=== PATIENT | female | born 1980 | race Caucasian/White ===

== ENCOUNTER 2020-08-14 13:30 | Emergency (ER) | payer OTHER, SELFPAY ==
--- NOTE | ~2020-08-14 | CT_ITS ---
EXAMINATION: CT abdomen pelvis w con EXAM DATE: 08/14/2020 15:24 INDICATION: Abdominal cramping, bloating, nausea . TECHNIQUE: Spiral CT of the abdomen and pelvis was performed following intravenous injection of 100 m L Omnipaque 350. Axial, coronal and sagittal images were reviewed. The dose-length product (DLP) fo r this examination was 414.45 mGy-cm. The exposure was tailored according to patient size (auto mA e xposure control), and iterative reconstruction (ASIR) was used as additional dose reduction technique . Comparison is made to prior examination from 08/21/2016. FINDINGS: The liver, spleen, adrenal glands and pancreas are unremarkable. Gallbladder is unremarkab le. No biliary obstruction. There are bilateral renal lesions consistent with cysts, largest on the right at 2.5 cm. Portal and splenic veins are patent. Kidneys enhance symmetrically. There is no hy dronephrosis. The uterus is anteverted and morphologically normal. The bladder is unremarkable. There is no retroperitoneal or pelvic lymphadenopathy. The appendix is normal. There is small sliding gastroesophageal hiatal hernia. There is moderate am ount of colonic stool. No free intraperitoneal gas. The heart is normal in size. There are no pe ricardial or pleural effusions. The lung bases are unremarkable. The bones are unremarkable. IMPRESSION: 1. No acute intra-abdominal findings. Reviewed, dictated and finalized at location A.
[2020-08-14 13:34] VITALS: BP 157/97; PULSE 76; RESP 18; TEMP 36.2; O2SAT 98
[2020-08-14 14:16] LABS: Basophils Percent Auto 0.2 % (0.2-1.2); Eosinophils Absolute Auto 0.1 K/mm3 (0-0.3); Eosinophils Percent Auto 1.4 % (0-4.4); Hematocrit 35.1 % (37.0-47.0); Hemoglobin 10.7 g/dL (12.0-15.0); Immature Granulocyte Absolute 0.02 K/mm3 (0.00-0.031); Immature Granulocyte Percent A 0.5 % (0-0.5); Lymphocytes Absolute Auto 1.33 K/mm3 (0.9-3.2); Lymphocytes Percent Auto 31.2 % (18.3-44.2); Mean Corpuscular HGB Conc 30.5 g/dl (32-36); Mean Corpuscular Hemoglobin 22.3 pg (26-34); Mean Corpuscular Volume 73.1 fl (80-100); Mean Platelet Volume 10.1 fl (7.4-10.4); Monocytes Absolute Auto 0.3 K/mm3 (0.1-0.6); Monocytes Percent Auto 7.7 % (2.6-8.5); Neutrophils Absolute Auto 2.5 K/mm3 (1.3-6.7); Platelet Count Result 203 k/mm3 (150-375); Red Cell Distribution Width 16.8 % (11.5-14.5); White Blood Count 4.3 K/mm3 (4.5-10.0)
[2020-08-14 14:28] LABS: Alanine Aminotransferase 25 U/L (4-35); Albumin Level 4.5 g/dL (3.5-5.1); Alkaline Phosphatase 63 U/L (38-126); Anion Gap 7 mmol/L (8-16); Aspartate Amino Transferase 32 U/L (14-36); Bilirubin,Total 0.2 mg/dL (0.2-1.3); Blood Urea Nitrogen 16 mg/dL (7-17); Calcium 9.3 mg/dL (8.4-10.2); Carbon Dioxide 26 mmol/L (22-30); Chloride 106 mmol/L (98-107); Estimated CRCL calculation 87 ml/min; Estimated Glomerular Filt Rate > 60; Glucose 116 mg/dL (65-105); Lipase 74 U/L (23-300); Potassium 3.7 mmol/L (3.4-5.0); Sodium 139 mmol/L (137-145)
[2020-08-14] MEDS: SODIUM CHLORIDE 0.9% IV 1,000 ML 999 ML IV CONT (14:36)
[2020-08-14 14:42] LABS: Add Urine Microscopic? YES; Appearance Urine Cloudy (Clear); Bilirubin Urine Negative (Negative); Blood Urine Negative (Negative); Color Urine Yellow (Yellow); Glucose Urine UA Negative (Negative); Ketones Urine Negative (Negative); Leukocyte Esterase Ur Negative LEU/UL (Negative); Mucus Urine Rare /lpf; Nitrate Urine Negative (Negative); Protein Urine Negative (Negative); RBC Urine 0-2 /hpf (0-2); Specific Grav Ur 1.019 (1.001-1.035); Squamous Epithelial Cell Urine Many /hpf (Few); Urobilinogen Urine Negative mg/dL (<2.0); WBC Urine 0-3 /hpf
[2020-08-14 14:45] VITALS: BP 128/88; PULSE 70; RESP 16; O2SAT 99
--- NOTE | 2020-08-14 15:41 | ED.ABDPAIN ---
HPI - Abdominal Pain General Chief Complaint: Abdominal Pain Stated Complaint: abd pain Time Seen by Provider: 08/14/20 13:42 Source: patient Mode of arrival: ambulatory Limitations: no limitations History of Present Illness HPI narrative: Patient is a 39-year-old female who presents complaining of abdominal pain. Patient reports intermittent abdominal pain for 1 year, and increasing over the past 6 months. Patient reports pain increased significantly over this past week. Patient reports initially starting with started on Metformin, did not improve when switched to Januvia. She no longer takes Januvia. She also reports nausea, intermittent vomiting and diarrhea. She reports increased nausea, pain and diarrhea after eating. She denies fever or other complaints. Related Data Home Medications Medication Instructions Recorded Confirmed lisinopril 06/11/19 sertraline [Zoloft] 100 mg PO DAILY 08/14/20 08/14/20 Allergies Allergy/AdvReac Type Severity Reaction Status Date / Time Penicillins Allergy Unknown Nausea Verified 08/14/20 13:48 Review of Systems Review of Systems: Narrative: CONSTITUTIONAL: Denies fever, chills, or sweats. EYES: Denies visual changes, redness, or discharge. ENT: Denies rhinorrhea, congestion, sore throat, or otalgia. CARDIOVASCULAR: Denies chest pain, palpitations, or edema. RESPIRATORY: Denies cough or dyspnea. GASTROINTESTINAL: Reports abdominal pain, nausea, vomiting, or diarrhea. GENITOURINARY: Denies dysuria or hematuria. SKIN: Denies rash or itching. MUSCULOSKELETAL: Denies back pain, joint pain, or myalgia. NEUROLOGIC: Denies headache, numbness, dizziness, or weakness. PSYCHIATRIC: Denies anxiety or depression. [facility] Past Medical History Medical History Anxiety Bulging disc Diabetes mellitus Surgical History Surgical History H/O removal of cyst H/O tubal ligation Family History Family History Grandparent Diabetes mellitus Social History Social History Smoking status: Former smoker Smoking end date: 05/29/15 Alcohol intake: never Gender identity (if verbalized by the patient): Female Comments At the time of signature, I have reviewed and agree with nursing past medical, surgical, social, and family history unless otherwise noted. Please see nursing chart for further information. There is no relevant family history pertinent to the presenting complaint. Exam Narrative: Exam Narrative: GENERAL: Well-appearing, well-nourished, and in no acute distress. HEAD: Normocephalic, atraumatic. EYES: EOMI. No redness or drainage. Conjunctiva are normal. ENT: Mucous membranes pink and moist. Nares clear. No rhinorrhea. TMs normal bilaterally. Throat normal. Uvula midline. NECK: AROM. Supple. No lymphadenopathy. CHEST: No respiratory distress. Clear to auscultation. HEART: Regular rate and rhythm. No murmur appreciated. Normal peripheral pulses. GI: Soft, nontender without rebound, or guarding. No distention. Bowel sounds normal in all quadrants. MUSCULOSKELETAL: No bony tenderness. EXTREMITIES: Normal range of motion. No edema. SKIN: Warm, dry, no rash. NEURO: No focal deficits. Alert and oriented x3. Gait steady. PSYCH: Normal affect. No signs of depression or anxiety. Course Vital Signs Vital signs: Vital Signs Temperature 36.2 C L 08/14/20 13:34 Pulse Rate 76 08/14/20 13:34 Respiratory Rate 18 08/14/20 13:34 Blood Pressure 157/97 H 08/14/20 13:34 Pulse Oximetry 98 08/14/20 13:34 Temperature 36.2 C L 08/14/20 13:34 Pulse Rate 76 08/14/20 13:34 Respiratory Rate 18 08/14/20 13:34 Blood Pressure 157/97 H 08/14/20 13:34 Pulse Oximetry 98 08/14/20 13:34 Reviewed-patient is informed that they may have pr
[2020-08-14 15:45] VITALS: BP 154/89; PULSE 68; RESP 16; O2SAT 100
[2020-08-14 16:30] VITALS: BP 145/90; PULSE 70; RESP 16; O2SAT 100
== END 2020-08-14 16:30 | disposition home or self-care (01) ==
PROVIDERS: Emergency Provider Nurse Practitioner; PCP Family Medicine
DX: R10.9 Unspecified abdominal pain (principal); E11.9 Type 2 diabetes mellitus without complications; F41.9 Anxiety disorder, unspecified; Z87.891 Personal history of nicotine dependence; R03.0 Elevated blood-pressure reading, without diagnosis of hypertension
CPT/HCPCS: 36415; 74177; 80053; 81001; 81025; 83690; 85025; 96360; 99284; J7030; Q9967

== ENCOUNTER → 2020-09-29 02:07 | Outpatient (CLI) | payer OTHER, SELFPAY ==
[2020-09-29 19:23] LABS: SARS-CoV-2 RNA PCR Negative
== END ==
PROVIDERS: PCP Family Medicine; Visit Provider Internal Medicine Gastroenterology
DX: Z01.812 Encounter for preprocedural laboratory examination (principal); Z20.822 Contact with and (suspected) exposure to COVID-19
CPT/HCPCS: C9803; U0003; U0005

== ENCOUNTER 2020-10-02 01:11 | Day surgery (SDC) | payer OTHER, SELFPAY ==
[2020-09-22 14:03] VITALS: BMI 28.3
[2020-10-02 08:43] VITALS: BP 133/74; PULSE 72; RESP 16; TEMP 36.4; O2SAT 99; BMI 27.1
[2020-10-02] MEDS: LACTATED RINGERS 1,000 ML 150 ML IV CONT (08:48)
[2020-10-02 09:00] LABS: Glucose Point of Care 98 (65-105)
--- NOTE | 2020-10-02 09:22 | PM.HPGS ---
History of Present Illness History of Present Illness Consent: Risks, benefits, and alternatives have been discussed and questions answered. Patient agrees to proceed with procedure. Chief complaint: anemia Narrative: Daria Soto is a 39 year old female referred for investigation of iron deficiency anemia. She also suffers from epigastric pain has a great deal of bloating. Often her stools are loose. She becomes nauseated but has had no vomiting. She treats some of her symptoms to diabetic medications and/or cholesterol medicines. Review of Systems Review of Systems: All systems reviewed & are unremarkable except as noted in HPI and below PMFSH Past Medical History Medical History Anxiety Bulging disc Diabetes mellitus Surgical History Surgical History H/O removal of cyst H/O tubal ligation Family History Family History Grandparent Diabetes mellitus Social History Social History Smoking packs per day: 0.5 Smoking cigarettes per day: 10.0 Years smoked: 15 Smoking pack-years: 7.50 Smoking status: Former smoker Tobacco type: cigarettes Smoking end date: 09/23/15 Alcohol intake: never Substance use: never Substance use type: does not use Living arrangements: with roommate(s) Gender identity (if verbalized by the patient): Female Sexual Orientation (if Verbalized by the Patient): Straight or Heterosexual Spiritual care concerns: No Meds Home Medications and Allergies Home Medications Medication Instructions Recorded Confirmed Type dicyclomine 20 mg PO TID PRN #20 cap 08/14/20 09/22/20 Rx sertraline [Zoloft] 100 mg PO HS 08/14/20 09/22/20 History lisinopril 20 mg PO HS 09/22/20 09/22/20 History Allergies Allergy/AdvReac Type Severity Reaction Status Date / Time Penicillins Allergy Unknown Nausea Verified 09/22/20 14:03 Vital Signs Vital Signs - 24 hr 10/02/20 08:43 Temperature 36.4 C L Pulse Rate 72 Respiratory Rate 16 Blood Pressure 133/74 Pulse Oximetry 99 Exam Const: General: alert Orientation/consciousness: patient oriented x3 Resp: Auscultation: clear to auscultation bilaterally Cardio: Rhythm: regular rhythm GI: GI Palp: Yes Soft to palpation and No Tenderness to palpation present (GI) Neuro: General: patient oriented x3 Assessment and Plan Assessment and plan (1) Iron deficiency anemia: Code(s): D50.9 - Iron deficiency anemia, unspecified Status: Acute Assessment and Plan: Colonoscopy with possible biopsy or polypectomy or cautery or injection of substances. (2) Epigastric pain: Code(s): R10.13 - Epigastric pain Status: Acute Assessment and Plan: EGD with possible biopsy or dilatation or cautery.
--- NOTE | 2020-10-02 09:26 | WPDANESEPPF ---
Anes - Initial Pre Proc Eval Procedure: Operation Date: 10/02/20 10:00 Proposed Procedures p Colonoscopy - Geovanny Ocampo MD Date/Time: 10/02/20 09:26 Surgeon: Geovanny Ocampo MD Pre Op Diagnosis: anemia Patient Data Age: 39 Gender: F Height: 5 ft 3 in Weight: 69.6 kg Last Vital Signs Temp 36.4 C L 10/02/20 08:43 Pulse 72 10/02/20 08:43 Resp 16 10/02/20 08:43 BP 133/74 10/02/20 08:43 Pulse Ox 99 10/02/20 08:43 Allergies Allergy/AdvReac Type Severity Reaction Status Date / Time Penicillins Allergy Unknown Nausea Verified 09/22/20 14:03 Home Medications Medication Instructions Recorded Confirmed Type dicyclomine 20 mg PO TID PRN #20 cap 08/14/20 09/22/20 Rx sertraline [Zoloft] 100 mg PO HS 08/14/20 09/22/20 History lisinopril 20 mg PO HS 09/22/20 09/22/20 History Laboratory Tests 10/02/20 08:56 POC Capillary Glucose 98 mg/dl mg/dl (65-105) Patient hx anesthesia problems: post op nausea/vomiting Family hx anesthesia problems: none PMFSH Past Medical History Medical History Anxiety Bulging disc Diabetes mellitus Surgical History Surgical History H/O removal of cyst H/O tubal ligation Family History Family History Grandparent Diabetes mellitus Social History Social History Smoking packs per day: 0.5 Smoking cigarettes per day: 10.0 Years smoked: 15 Smoking pack-years: 7.50 Smoking status: Former smoker Tobacco type: cigarettes Smoking end date: 09/23/15 Alcohol intake: never Substance use: never Substance use type: does not use Living arrangements: with roommate(s) Gender identity (if verbalized by the patient): Female Sexual Orientation (if Verbalized by the Patient): Straight or Heterosexual Spiritual care concerns: No Anes - Eval Final PreProcedure Day of Procedure 10/02/20 09:26 Patient weight: overweight Heart: regular rate and rhythm Lungs: clear to auscultation Airway: Mallampati scale class II Neurological: alert and oriented Last oral intake: >/= 8 hours ASA classification: III Emergent: no Anesthetic plan: proceed Anesthesia type and monitoring: general GIVS and standard monitoring Informed Consent: The patient's anesthetic plan and its attendant risks and benefits were discussed with the patient/family/POA. Questions were solicited and answers provided to the satisfaction of the patient/family/POA.
[2020-10-02 10:28] VITALS: BP 115/63; PULSE 69; RESP 16; O2SAT 99
[2020-10-02 10:38] VITALS: BP 120/62; PULSE 70; RESP 18; O2SAT 99
[2020-10-02 10:47] VITALS: BP 130/67; PULSE 60; RESP 19; O2SAT 100
== END 2020-10-02 11:00 | disposition home or self-care (01) ==
PROVIDERS: PCP Family Medicine; Visit Provider Internal Medicine Gastroenterology
PROC: 0DJD8ZZ Inspection of Lower Intestinal Tract, Via Natural or Artificial Opening Endoscopic (ICD-10-PCS; CPT 45378; principal; 2020-10-02 10:00)
DX: Z12.11 Encounter for screening for malignant neoplasm of colon (principal); K21.9 Gastro-esophageal reflux disease without esophagitis; K29.70 Gastritis, unspecified, without bleeding; K29.80 Duodenitis without bleeding; F41.9 Anxiety disorder, unspecified; E11.9 Type 2 diabetes mellitus without complications; Z87.891 Personal history of nicotine dependence
CPT/HCPCS: 45378; 43239; 82948; 87081; 88305; J2704; J7120

== ENCOUNTER 2021-01-11 14:55 | Emergency (ER) | payer OTHER, SELFPAY ==
[2021-01-11 15:04] VITALS: BP 141/87; PULSE 69; RESP 16; TEMP 36.4; O2SAT 100
--- NOTE | 2021-01-11 15:31 | ED.DENTAL ---
HPI - Dental/Oral General Chief complaint: Dental/Oral Stated complaint: Tooth Pain Time Seen by Provider: 01/11/21 15:31 Source: patient and RN notes reviewed Mode of arrival: ambulatory Limitations: no limitations History of Present Illness HPI Narrative: 40-year-old female presents with concern for left upper dental pain. Reports 1 year ago she broke a tooth, did not have pain at that time so she did not have it taken care of. Reports in the last several days she began having pain on the upper left side and now the lower left side. Reports she used [id number] temporary filling with some relief. Reports she has an appointment with a dentist on . She denies fever, body aches, foul taste in her mouth. MD Complaint: tooth pain Related Data Home Medications Medication Instructions Recorded Confirmed sertraline [Zoloft] 100 mg PO HS 08/14/20 01/11/21 lisinopril 20 mg PO HS 09/22/20 01/11/21 pioglitazone 30 mg PO DAILY 01/11/21 01/11/21 Allergies Allergy/AdvReac Type Severity Reaction Status Date / Time Penicillins Allergy Unknown Nausea Verified 01/11/21 15:14 Review of Systems Review of Systems: CONSTITUTIONAL: Denies malaise, chills, sweats, or fever. ENT: Reports left upper and left lower dental pain, broken left upper tooth CARDIOVASCULAR: Denies chest pain, palpitations, or edema. SKIN: Denies rash or itching. MUSCULOSKELETAL: Denies myalgia. NEUROLOGIC: Denies headache. All systems reviewed & are unremarkable except as noted in HPI and below PMFSH Past Medical History Medical History Anxiety Bulging disc Diabetes mellitus Surgical History Surgical History H/O removal of cyst H/O tubal ligation Family History Family History Grandparent Diabetes mellitus Social History Social History Smoking packs per day: 0.5 Smoking cigarettes per day: 10.0 Years smoked: 15 Smoking pack-years: 7.50 Smoking status: Former smoker Tobacco type: cigarettes Smoking end date: 09/23/15 Alcohol intake: never Substance use: never Substance use type: does not use Gender identity (if verbalized by the patient): Female Spiritual care concerns: No Comments At time of signature, agree with nursing past medical, surgical, social and family history. There is no relevant family history pertinent to the presenting complaint Exam Narrative: GENERAL: Well-appearing, well-nourished, and in no acute distress. HEAD: Normocephalic, atraumatic. EYES: PERRLA, conjunctivae clear ENT: Nares clear. Mucous membranes moist. Oropharynx without edema, erythema or lesions. Tooth #14 broken, temporary filling noted, no periapical abscess noted NECK: Supple. CHEST: No respiratory distress. Speaks in full sentences. HEART: Regular rate and rhythm. SKIN: Warm, dry, no rash. NEURO: Alert and oriented x3. PSYCH: Normal mood and affect Course Course Emergency Course: Patient is aware of diagnosis, understands and agrees to treatment plan. Anticipatory guidance given. Patient agrees to follow-up as directed and is aware of reasons to seek care at the emergency department. Portions of this record may have been created with voice recognition software Vital Signs Vital signs: Vital Signs Temperature 97.5 F L 01/11/21 15:04 Pulse Rate 69 01/11/21 15:04 Respiratory Rate 16 01/11/21 15:04 Blood Pressure 141/87 H 01/11/21 15:04 Pulse Oximetry 100 01/11/21 15:04 Temperature 97.5 F L 01/11/21 15:04 Pulse Rate 69 01/11/21 15:04 Respiratory Rate 16 01/11/21 15:04 Blood Pressure 141/87 H 01/11/21 15:04 Pulse Oximetry 100 01/11/21 15:04 Reviewed. Patient has history of hypertension MDM - Dental/Oral MDM Narrative Medical decision making narrative: Patients pa
== END 2021-01-11 15:58 | disposition home or self-care (01) ==
PROVIDERS: Emergency Provider Nurse Practitioner; PCP Family Medicine
DX: K08.89 Other specified disorders of teeth and supporting structures (principal); Z87.891 Personal history of nicotine dependence; F41.9 Anxiety disorder, unspecified; E11.9 Type 2 diabetes mellitus without complications
CPT/HCPCS: 99213; G0463

== ENCOUNTER 2021-01-15 13:15 | Emergency (ER) | payer OTHER, SELFPAY ==
[2021-01-15 13:28] VITALS: BP 124/57; PULSE 71; RESP 16; TEMP 36.6; O2SAT 100
--- NOTE | 2021-01-15 13:44 | ED.DENTAL ---
HPI - Dental/Oral General Chief complaint: Dental/Oral Stated complaint: SWOLLEN LIPS Time Seen by Provider: 01/15/21 13:45 Source: patient and RN notes reviewed Mode of arrival: ambulatory Limitations: no limitations History of Present Illness HPI Narrative: 40-year-old female presents to the [facility] with complaints of lower lip swelling for 2 days. Was recently started on clindamycin. Was seen on January 11 and diagnosed with dental infection. Patient states that she started her clindamycin 2 days later her lip swelled up. Small blister noted to the front portion as well as it being very dry. Related Data Home Medications Medication Instructions Recorded Confirmed sertraline [Zoloft] 100 mg PO HS 08/14/20 01/15/21 lisinopril 20 mg PO HS 09/22/20 01/15/21 pioglitazone 30 mg PO DAILY 01/11/21 01/15/21 Allergies Allergy/AdvReac Type Severity Reaction Status Date / Time Penicillins Allergy Unknown Nausea Verified 01/15/21 13:30 Review of Systems Review of Systems: All systems reviewed & are unremarkable except as noted in HPI and below Constitutional: Constitutional: Reports no additional constitutional complaints, Denies chills and Denies fever(s) Eyes: Eyes: Reports no additional eye complaints ENT: Reports as per HPI Comments: lower lip swelling Cardiovascular: Cardiovascular: Reports no additional cardiovascular complaints Respiratory: Respiratory: Reports no additional respiratory complaints Musculoskeletal: Musculoskeletal: Reports no additional musculoskeletal complaints, Denies back pain and Denies myalgias Integumentary/Breasts: Skin/Breast: Reports system reviewed and no additional complaints, except as docu Neurologic: Reports system reviewed and no additional complaints, except as documented Psychiatric: Psychiatric: Reports no additional psychiatric complaints Allergic/Immunologic: Allergic/Immunologic: Reports no additional allergic/immunologic complaints [facility] Past Medical History Medical History Anxiety Bulging disc Diabetes mellitus Surgical History Surgical History H/O removal of cyst H/O tubal ligation Family History Family History Grandparent Diabetes mellitus Social History Social History Smoking packs per day: 0.5 Smoking cigarettes per day: 10.0 Years smoked: 15 Smoking pack-years: 7.50 Smoking status: Former smoker Tobacco type: cigarettes Smoking end date: 09/23/15 Alcohol intake: never Substance use: never Substance use type: does not use Gender identity (if verbalized by the patient): Female Spiritual care concerns: No Comments At the time of my signature, I reviewed and agree with the nursing past medical, surgical, social, and family history. There is no relevant family history pertinent to the patient complaint. Exam Const: General: healthy appearing, no acute distress and alert Nutritional Appearance: well nourished Orientation/consciousness: patient oriented x3 Limitations: no limitations HENMT: Head: normal to inspection Ears: hearing grossly normal bilaterally Face and sinus: other (Lower lip swelling with dryness and a scabbed area) Mouth: Yes Normal oral and palatal mucosa present and Yes tongue normal Throat: posterior oropharynx normal, uvula midline and posterior oropharynx abnormal Eyes: Conjunctivae: conjunctivae normal Pupils: Equal, round and reactive pupils present Neck: Neck: normal visual inspection Chest: Chest palpation & inspection: normal inspection of the chest Resp: Effort & Inspection: normal respiratory effort Auscultation: clear to auscultation bilaterally Cardio: Rate: regular rate Rhythm: regular rhythm : General: Yes no CVA tenderness Skin: General skin exam: normal color
== END 2021-01-15 14:01 | disposition home or self-care (01) ==
PROVIDERS: Emergency Provider Nurse Practitioner; PCP Family Medicine
DX: R22.0 Localized swelling, mass and lump, head (principal); Z87.891 Personal history of nicotine dependence; F41.9 Anxiety disorder, unspecified; E11.9 Type 2 diabetes mellitus without complications
CPT/HCPCS: 99213; G0463

== ENCOUNTER 2021-09-14 15:02 | Emergency (ER) | payer OTHER, SELFPAY ==
[2021-09-14 15:10] VITALS: BP 146/92; PULSE 105; RESP 14; TEMP 36.9; O2SAT 100
[2021-09-14 15:47] VITALS: BP 160/105; PULSE 113; RESP 18; O2SAT 98
--- NOTE | 2021-09-14 16:05 | PC.NURSE ---
Angie Avery with rectal exam.
--- NOTE | 2021-09-14 16:08 | ECG_ITS ---
Measurements Intervals [place] Rate: 89 P: 59 OK: 172 QRS: -2 QRSD: 92 T: 31 QT: 356 QTc: 435 Interpretive Statements SINUS RHYTHM NORMAL ECG NO PREVIOUS ECG AVAILABLE FOR COMPARISON Electronically Signed On 09-15-2021 11:41:11 CDT by Lencho Saunders M.D.
[2021-09-14] MEDS: MORPHINE SULFATE (*CRX) 4 MG/ML INJ IV PUSH (16:35)
[2021-09-14 16:40] LABS: Basophils Percent Auto 0.4 % (0.2-1.2); Eosinophils Absolute Auto 0.1 K/mm3 (0-0.3); Eosinophils Percent Auto 2.2 % (0-4.4); Hematocrit 38.1 % (37.0-47.0); Hemoglobin 11.6 g/dL (12.0-15.0); Immature Granulocyte Absolute 0.01 K/mm3 (0.00-0.031); Immature Granulocyte Percent A 0.2 % (0-0.5); Lymphocytes Absolute Auto 1.24 K/mm3 (0.9-3.2); Lymphocytes Percent Auto 25.1 % (18.3-44.2); Mean Corpuscular HGB Conc 30.4 g/dl (32-36); Mean Corpuscular Hemoglobin 25.3 pg (26-34); Mean Corpuscular Volume 83.2 fl (80-100); Mean Platelet Volume 9.9 fl (7.4-10.4); Monocytes Absolute Auto 0.4 K/mm3 (0.1-0.6); Monocytes Percent Auto 8.5 % (2.6-8.5); Neutrophils Absolute Auto 3.1 K/mm3 (1.3-6.7); Neutrophils Percent Auto 63.6 % (45.5-73.1); Platelet Count Result 245 k/mm3 (150-375); Red Blood Count 4.58 M/mm3 (4.2-5.4); Red Cell Distribution Width 16.7 % (11.5-14.5); White Blood Count 4.9 K/mm3 (4.5-10.0)
[2021-09-14 16:50] LABS: Alanine Aminotransferase 18 U/L (4-35); Albumin Level 4.6 g/dL (3.5-5.1); Alkaline Phosphatase 60 U/L (38-126); Anion Gap 8 mmol/L (8-16); Aspartate Amino Transferase 34 U/L (14-36); Bilirubin,Total 0.2 mg/dL (0.2-1.3); Blood Urea Nitrogen 16 mg/dL (7-17); Calcium 8.6 mg/dL (8.4-10.2); Carbon Dioxide 23 mmol/L (22-30); Chloride 106 mmol/L (98-107); Estimated CRCL calculation 107 ml/min; Estimated Glomerular Filt Rate > 60; Glucose 86 mg/dL (65-110); Potassium 3.9 mmol/L (3.4-5.0); Sodium 137 mmol/L (137-145)
--- NOTE | 2021-09-14 17:04 | ED.GENADULT ---
HPI - General Adult General Chief complaint: Unspecified Stated complaint: rectal pain Time Seen by Provider: 09/14/21 15:46 Source: patient History of Present Illness HPI narrative: Patient presents with rectal pain. Patient reports longstanding history of hemorrhoids she had that she had a complicated emergence colorectal surgery for her prior hemorrhoids but she was in the hospital for approximately 6 weeks. This was done 15 years ago in [place] she has been doing well since however the past 6 months she has had increased pain around her rectum she is attempted multiple [id number] medications without relief of her symptoms she saw her primary care doctor today and was referred to the ER for further evaluation. Denies any nausea or vomiting or abdominal pain her pain is all in her rectum described as a burning sensation worse with sitting moving attempts have bowel movements, no radiation. She does report streaks of blood in her stool Related Data Home Medications Medication Instructions Recorded Confirmed sertraline [Zoloft] 100 mg PO HS 08/14/20 09/14/21 lisinopril 20 mg PO HS 09/22/20 09/14/21 pioglitazone 30 mg PO DAILY 01/11/21 09/14/21 Allergies Allergy/AdvReac Type Severity Reaction Status Date / Time Penicillins Allergy Unknown Nausea Verified 01/15/21 13:30 Review of Systems Review of Systems: CONSTITUTIONAL: Denies fever, chills, or sweats. EYES: Denies visual changes, redness, or discharge. ENT: Denies rhinorrhea, congestion, sore throat, or otalgia. CARDIOVASCULAR: Denies chest pain, palpitations, or edema. RESPIRATORY: Denies cough or dyspnea. GASTROINTESTINAL: Denies abdominal pain, nausea, vomiting, or diarrhea. GENITOURINARY: Denies dysuria or hematuria. SKIN: Denies rash or itching. MUSCULOSKELETAL: Denies back pain, joint pain, or myalgia. NEUROLOGIC: Denies headache, numbness, dizziness, or weakness. PSYCHIATRIC: Denies anxiety or depression. All systems reviewed & are unremarkable except as noted in HPI and below PMFSH Past Medical History Medical History Anxiety Bulging disc Diabetes mellitus Surgical History Surgical History H/O removal of cyst H/O tubal ligation Family History Family History Grandparent Diabetes mellitus Social History Social History Smoking packs per day: 0.5 Smoking cigarettes per day: 10.0 Years smoked: 15 Smoking pack-years: 7.50 Smoking status: Former smoker Tobacco type: cigarettes Smoking end date: 09/23/15 Alcohol intake: never Substance use: never Substance use type: does not use Gender identity (if verbalized by the patient): Female Sexual Orientation (if Verbalized by the Patient): Straight or Heterosexual Spiritual care concerns: No Exam Narrative: GENERAL: Well-appearing, well-nourished, and in no acute distress. HEAD: Normocephalic, atraumatic. EYES: PERRLA and EOMI. ENT: Nares clear, no rhinorrhea or epistaxis. Mucous membranes moist. NECK: Supple. No masses. No JVD ABDOMEN: Soft, nontender, nondistended, normal active bowel sounds. Rectal: Nurse Minerva was frame stripper for the exam patient has diffuse hemorrhoids exquisitely tender hemorrhoids on the entirety of the rectum multiple overlying skin tags no active bleeding EXTREMITIES: Normal range of motion. No edema. SKIN: Warm, dry, no rash. NEURO: No focal deficits. Alert and oriented x3. PSYCH: Normal mood and affect. Course Reevaluation(s) Reevaluation #1: Patient reports feeling much improved after supportive therapies. Case discussed with Dr. Christian who will assist with outpatient evaluation. Patient is comfortable outpatient plan. Diet education given importance of sitz bath and stool softener stressed. Date: 09/14/21 Time: 17:36 Madelyn
[2021-09-14 17:59] VITALS: BP 142/88; PULSE 78; RESP 18; O2SAT 98
[2021-09-14] MEDS: HYDROCORTISONE/PRAMOX 1% FOAM 10 GM CAN 1 APPLIC RECTAL (18:00)
== END 2021-09-14 18:01 | disposition home or self-care (01) ==
PROVIDERS: Emergency Provider Emergency Medicine; PCP Physician Assistant
DX: K64.9 Unspecified hemorrhoids (principal); E11.9 Type 2 diabetes mellitus without complications; F41.9 Anxiety disorder, unspecified; Z87.891 Personal history of nicotine dependence
CPT/HCPCS: 36415; 80053; 85025; 93005; 96374; 99284; A9270; J2270

== ENCOUNTER 2021-09-19 17:50 | Emergency (ER) | payer OTHER, SELFPAY ==
[2021-09-19] VITALS (11 sets, daily range): BP systolic 121–158; BP diastolic 77–117; PULSE 91–128; RESP 8–20; TEMP 36.6; O2SAT 95–100
--- NOTE | ~2021-09-19 | CT_ITS ---
EXAMINATION: CT abdomen pelvis w con INDICATION: Rectal pain, hematochezia TECHNIQUE: Computed tomographic images of the abdomen and pelvis were obtained after the administrati on of 100 cc of Omnipaque 350 intravenous contrast. The dose-length product (DLP) was 734.50 mGy-cm. Automated exposure control and iterative reconstruction technique were employed. COMPARISON: 08/14/2020 FINDINGS: Minimal dependent atelectasis is present in the lung bases. The heart size is normal. There is a small sliding hiatal hernia. The liver, spleen, pancreas, gallbladder, and adrenal glands are n ormal. Cysts of the kidneys measure up to 3 cm on the right. 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 No pathologically enlarged abdominal or pelvic lymph nodes are identified. A moderate volu me of colonic stool is present. There is no free intraperitoneal gas or evidence of bowel obstruction . There is a fat-containing umbilical hernia. IMPRESSION: 1. No CT correlate for the patient's symptoms. Reviewed, dictated and finalized at location F.
[2021-09-19] MEDS: SODIUM CHLORIDE 0.9% IV 1,000 ML 999 ML IV CONT (20:04)
[2021-09-19] MEDS: fentaNYL CITRATE INJ (*CRX) 100 MCG/2 ML VIAL 50 MCG IV PUSH (20:06)
[2021-09-19 20:24] LABS: Basophils Percent Auto 0.3 % (0.2-1.2); Eosinophils Absolute Auto 0.1 K/mm3 (0-0.3); Eosinophils Percent Auto 1.3 % (0-4.4); Hematocrit 37.7 % (37.0-47.0); Hemoglobin 11.8 g/dL (12.0-15.0); Immature Granulocyte Absolute 0.02 K/mm3 (0.00-0.031); Immature Granulocyte Percent A 0.3 % (0-0.5); Lymphocytes Absolute Auto 1.25 K/mm3 (0.9-3.2); Lymphocytes Percent Auto 19.8 % (18.3-44.2); Mean Corpuscular HGB Conc 31.3 g/dl (32-36); Mean Corpuscular Hemoglobin 25.7 pg (26-34); Mean Corpuscular Volume 82.1 fl (80-100); Mean Platelet Volume 10.1 fl (7.4-10.4); Monocytes Absolute Auto 0.5 K/mm3 (0.1-0.6); Monocytes Percent Auto 7.6 % (2.6-8.5); Neutrophils Absolute Auto 4.5 K/mm3 (1.3-6.7); Neutrophils Percent Auto 70.7 % (45.5-73.1); Platelet Count Result 244 k/mm3 (150-375); Red Blood Count 4.59 M/mm3 (4.2-5.4); Red Cell Distribution Width 16.5 % (11.5-14.5); White Blood Count 6.3 K/mm3 (4.5-10.0)
[2021-09-19 20:33] LABS: Alanine Aminotransferase 17 U/L (4-35); Albumin Level 4.6 g/dL (3.5-5.1); Alkaline Phosphatase 61 U/L (38-126); Anion Gap 10 mmol/L (8-16); Aspartate Amino Transferase 29 U/L (14-36); Bilirubin,Total 0.2 mg/dL (0.2-1.3); Blood Urea Nitrogen 19 mg/dL (7-17); Calcium 8.9 mg/dL (8.4-10.2); Carbon Dioxide 19 mmol/L (22-30); Chloride 107 mmol/L (98-107); Estimated CRCL calculation 104 ml/min; Estimated Glomerular Filt Rate > 60; Glucose 106 mg/dL (65-110); Potassium 3.9 mmol/L (3.4-5.0); Sodium 136 mmol/L (137-145)
--- NOTE | 2021-09-19 20:34 | ED.GENADULT ---
HPI - General Adult General Chief complaint: Unspecified Stated complaint: hemorrhoids with inability to sit Time Seen by Provider: 09/19/21 19:00 History of Present Illness HPI narrative: Patient is a 40-year-old female who presents ER with pain around her rectum. She reports that she began having pain earlier in the week. She has been seen in the ER and she has also been evaluated by general surgery. She is supposed to get an exam under anesthesia of her rectum regarding possible rectal mass, anal polyps, and hemorrhoids. She reports pain increased today and she was told with pain increase she should go to the ER. Pain is near the perineum. She cannot sit. No fevers chills or sweats. She has been using Tucks and topical creams for her bottom without improvement. Related Data Home Medications Medication Instructions Recorded Confirmed sertraline [Zoloft] 100 mg PO HS 08/14/20 09/14/21 lisinopril 20 mg PO HS 09/22/20 09/14/21 pioglitazone 30 mg PO DAILY 01/11/21 09/14/21 cyclobenzaprine 10 mg tablet 10 mg PO TID 09/15/21 Allergies Allergy/AdvReac Type Severity Reaction Status Date / Time Penicillins Allergy Unknown Nausea Verified 09/16/21 14:08 Review of Systems Review of Systems: All systems reviewed & are unremarkable except as noted in HPI and below Constitutional: Constitutional: Denies chills and Denies fever(s) Cardiovascular: Cardiovascular: Denies chest pain, Denies rapid heart rate and Denies radiating jaw, neck or arm pain Respiratory: Respiratory: Denies cough and Denies dyspnea Gastrointestinal: Gastrointestinal: Denies abdominal pain, Reports hematochezia, Denies constipation, Denies diarrhea, Denies nausea and Denies vomiting Comments: Rectal pain Genitourinary: Genitourinary: Denies nocturia, Denies dysuria and Denies flank pain PMF Past Medical History Medical History (Updated 09/19/21 @ 22:36 by Anthony Rodriguez MD) Anxiety Bulging disc Diabetes mellitus History of blood transfusion Hypertension Surgical History Surgical History H/O laparoscopy H/O removal of cyst ovarian cyst H/O tubal ligation History of rectal surgery Family History Family History Grandparent Diabetes mellitus Mother Diabetes mellitus Hypertension Social History Social History Smoking packs per day: 0.5 Smoking cigarettes per day: 10.0 Years smoked: 15 Smoking pack-years: 7.50 Smoking status: Former smoker Tobacco type: cigarettes Smoking end date: 09/23/15 Alcohol intake: never Substance use: never Substance use type: does not use Additional occupation/education comments: [employer] Gender identity (if verbalized by the patient): Female Sexual Orientation (if Verbalized by the Patient): Straight or Heterosexual Spiritual care concerns: No Exam Narrative: GENERAL: Uncomfortable-appearing, well-nourished, and in no acute distress. HEAD: Normocephalic, atraumatic. ENT: Mucous membranes moist. CHEST: Clear to auscultation. No respiratory distress. HEART: Tachycardic and regular. Normal peripheral pulses. ABDOMEN: Soft, nontender, nondistended. Rectum does not reveal any thrombosed hemorrhoids or anal fissures. No left lateral decubitus position at the 3 o'clock position at the perineum patient has some fullness and pain. No cellulitis or discernible abscess. EXTREMITIES: Normal range of motion. No edema. SKIN: Warm, dry, no rash. NEURO: Alert and oriented x3. PSYCH: Normal mood and affect. Course Course Emergency Course: Pain improved with morphine. Informed of results. No evidence of abscess or thrombosed hernia. Discharge home. Recommend getting a doughnut pillow to help with discomfort. Follow-up with general surgery. Vital Signs Vital signs: Vital Signs Temperature
== END 2021-09-19 23:00 | disposition home or self-care (01) ==
PROVIDERS: Emergency Provider Emergency Medicine; PCP Physician Assistant
DX: K62.89 Other specified diseases of anus and rectum (principal); E11.9 Type 2 diabetes mellitus without complications; F41.9 Anxiety disorder, unspecified; I10 Essential (primary) hypertension; Z87.891 Personal history of nicotine dependence
CPT/HCPCS: 36415; 74177; 80053; 85025; 96361; 96374; 99284; J3010; J7030; Q9967

== ENCOUNTER → 2021-09-21 01:54 | Outpatient (CLI) | payer OTHER, SELFPAY ==
[2021-09-21 12:54] LABS: SARS-CoV-2 RNA PCR Negative
== END ==
PROVIDERS: PCP Physician Assistant; Visit Provider Surgery
DX: Z01.812 Encounter for preprocedural laboratory examination (principal); Z20.822 Contact with and (suspected) exposure to COVID-19
CPT/HCPCS: C9803; U0003; U0005

== ENCOUNTER 2021-09-24 01:27 | Day surgery (SDC) | payer OTHER, SELFPAY ==
--- NOTE | 2021-09-22 09:59 | SUR.PREOP ---
Report to the Outpatient Waiting Room, entrance under the green pavilion located off [facility], at time 1100 on date 09/24/21. OR Time: 1300. - You and your visitor will be asked a series of questions to screen for COVID 19 for your protection. - A mask is required within the hospital. Preoperative COVID Testing Requirements: No COVID Test needed if: (proof is required; if not received patient will have Rapid Test prior to entry) - Patient has received COVID Vaccine at least 14 days prior to procedure date or - Patient has positive COVID test result within last 90 days of surgery date. COVID Test needed if above criteria is not met If not COVID vaccinated a COVID test must be conducted within 72 hours of surgery and patient is asked to isolate self from time of testing until procedure. You will go to the [facility] for your COVID testing. The [facility] is located at the corner of [address] [facility]. You will only be called if COVID results are positive and your surgeon may reschedule your elective surgery date. Patients may have clear liquids (water, carbonated beverages, clear teas, apple juice) until 3 hours prior to surgery with a maximum of 20 ounces. - CLEAR LIQUIDS DAY PRIOR TO SURGERY - NO CLEAR LIQUIDS AFTER 1000 - No food from midnight until time of surgery - Infants may have breast milk until 4 hours before surgery, infant formula 6 hours prior to surgery. - Children will be allowed to drink immediately following surgery. If applicable, please bring a bottle or sippy cup to assist with drinking. Juice, water, soda, and popsicles are readily available. For infants on formula, please bring formula the day of surgery. Pacifiers are allowed. Please no make-up, nail montenegrin, hairspray, perfume, deodorant, or body powder the day of surgery. No jewelry (including any body piercings) or valuables the day of surgery, leave them at home. Please take a shower or bath the night before, or the morning of, surgery with an antibacterial soap. Wear comfortable, loose fitting clothing. Children are encouraged to wear pajamas. - Jewelry must be removed prior to entering the operating room. Rings and piercings that are not removed may be cut off. - The hospital will not accept responsibility for valuables. - Please leave all valuables, including medications, at home the day of surgery. If you are going home after surgery, a licensed airport driver must drive you home. - NO public transportation without another adult. - We recommend that an adult stay with you for 24 hours following discharge. - We also recommend that you do not drive, make important decision, drink alcoholic beverages, or take any drugs that were not prescribed by your health care provider for at least 24 hours after your discharge time. For Pediatric surgeries, we recommend two adults accompany the child home (only one inside the building at this time). One visitor will be allowed to accompany the patient into the hospital. Patients visitor will be instructed to remain with patient at all times or leave the building. We will allow the visitor to come back to the postoperative area when patient is ready. Follow any additional instructions given to you from your surgeon. FLEETS ENEMA AT BEDTIME AND MORNING OF SURGERY BEFORE COMING TO THE HOSPITAL DULCOLAX TABLET DIRECTED PER DR CAREY Telephone instructions given to SYEDA APPLE and asked if any additional questions and then verbalized understanding. Patient advised to call surgeon office or pre surgery nurse liaison [phone] if any additional questions.
[2021-09-24] VITALS (10 sets, daily range): BP systolic 125–151; BP diastolic 73–97; PULSE 84–115; RESP 12–16; TEMP 36.2–36.6; O2SAT 98–100
[2021-09-24] MEDS: ACETAMINOPHEN 500 MG TABLET 1000 MG PO (11:51)
[2021-09-24] MEDS: LACTATED RINGERS 1,000 ML 30 ML IV CONT (12:00)
[2021-09-24] MEDS: KETOROLAC 15 MG/ML VIAL (*BKC) IV PUSH (12:04)
[2021-09-24 12:08] LABS: Glucose Point of Care 108 mg/dl (65-105)
--- NOTE | 2021-09-24 12:31 | WPDANESEPPF ---
Anes - Initial Pre Proc Eval Procedure: Operation Date: 09/24/21 13:00 Proposed Procedures p Rectal Exam Under Anesthesia, Rigid Sigmoidoscopy, Possible Biopsy, Possible Excision Rectal Mass or Internal Hemorrhoid - Pranav Christian MD Date/Time: 09/24/21 12:31 Surgeon: Pranav Christian MD Pre Op Diagnosis: Rectal Mass Patient Data Age: 40 Gender: F Height: 1.63 m Weight: 82.6 kg Last Vital Signs Temp 36.6 C 09/24/21 11:36 Pulse 111 H 09/24/21 11:36 Resp 16 09/24/21 11:36 BP 144/97 H 09/24/21 11:36 Pulse Ox 100 09/24/21 11:36 Allergies Allergy/AdvReac Type Severity Reaction Status Date / Time Penicillins Allergy Intermediate Rash Verified 09/24/21 11:46 Home Medications Medication Instructions Recorded Confirmed Type sertraline [Zoloft] 100 mg PO HS 08/14/20 09/24/21 History lisinopril 20 mg PO HS 09/22/20 09/24/21 History pioglitazone 30 mg PO HS 01/11/21 09/24/21 History cyclobenzaprine 10 mg tablet 10 mg PO HS 09/15/21 09/24/21 History ferrous sulfate [Gentle Iron (iron 325 mg PO DAILY 09/22/21 09/24/21 History sulfate)] Laboratory Tests 09/24/21 12:03 POC Capillary Glucose 108 mg/dl H mg/dl (65-105) Patient hx anesthesia problems: none Family hx anesthesia problems: post op nausea/vomiting Results Review: All pre-operative results and documents have been reviewed as part of the pre-operative evaluation. [facility] Past Medical History Medical History Anxiety Bulging disc Diabetes mellitus History of blood transfusion Hypertension Surgical History Surgical History H/O laparoscopy H/O removal of cyst ovarian cyst H/O tubal ligation History of rectal surgery Family History Family History Grandparent Diabetes mellitus Mother Diabetes mellitus Hypertension Social History Social History Smoking packs per day: 0.5 Smoking cigarettes per day: 10.0 Years smoked: 15 Smoking pack-years: 7.50 Smoking status: Former smoker Tobacco type: cigarettes Smoking end date: 09/23/15 Alcohol intake: never Substance use: never Substance use type: does not use Living arrangements: with family 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[employer] Gender identity (if verbalized by the patient): Female Sexual Orientation (if Verbalized by the Patient): Straight or Heterosexual Spiritual care concerns: No Anes - Eval Final PreProcedure Day of Procedure 09/24/21 12:31 Patient weight: obese Heart: regular rate and rhythm Lungs: decreased breath sounds Airway: Mallampati scale class II Neurological: alert and oriented Last oral intake: >/= 8 hours ASA classification: III Emergent: no Anesthetic plan: proceed Anesthesia type and monitoring: general LMA and standard monitoring Results Review: All pre-operative results and documents have been reviewed as part of the pre-operative evaluation. Informed Consent: The patient's anesthetic plan and its attendant risks and benefits were discussed with the patient/family/POA. Questions were solicited and answers provided to the satisfaction of the patient/family/POA.
--- NOTE | 2021-09-24 12:40 | WPDHPUPDATE1 ---
History and Physical Update Update Date/Time: 09/24/21 12:40 History and Physical has been reviewed, including an updated exam of the patient. There are changes in the patient's condition. Pt has had some bleeding and increased pain with BM's. Stools now are soft to runny. Risks, benefits, and alternatives have been discussed and questions answered. Patient agrees to proceed with procedure.
[2021-09-24] MEDS: ceFAZolin 2 GM/D5W 50 ML 2 GM/50 ML BAG IVPB (12:41)
--- NOTE | 2021-09-24 14:29 | W.PM.PROC2 ---
Procedure Note - Detailed Date of Procedure 09/26/21 Pre-op Diagnosis 1. Rectal Mass 2. Large anal skin tags 3. Grade 2 external hemorrhoids Post-op Diagnosis Same (+ posterior anal fissure.) Procedure Performed 1. Excision of left anterior rectal mass (suspected hypertrophic anal papilla). 2. Excision of internal external hemorrhoids and large anal skin tag right posterior position 3. Excision of external hemorrhoid and anal skin tag left posterior position 4. Left lateral internal sphincterotomy 5. Excision of small external hemorrhoid and large skin tag right anterior position. 6. Rigid sigmoidoscopy to 18 cm Surgeon Pranav Christian MD Banquet Pilot ADONIS Diaz, OR 1st assist Anesthesia General Indications The patient has had increasing anal area pain over the last 2-4 weeks. She also has large anal skin tags and a palpable anal canal mass. She had so much discomfort on exam in the office and needed excision of large anal skin tags that were difficult to keep clean so we planned to examine her under anesthesia. Findings On rigid sigmoidoscopy there was still some liquid stool within the rectum which was suctioned away On Anal/rectal exam under anesthesia with rectal retraction no large or fungating rectal mass was seen. A small apparent hypertrophic papilla was present overlying grade 2 internal hemorrhoid in the left lateral position. Also noted was what appeared to be a small posterior anal fissure (presenting as a definite split in the anal area mucosa posteriorly). Fairly large anal skin tags present and the largest were excised. Description of Procedure The patient was brought to the operating room and placed supine on the operative table. After induction of adequate LMA general anesthesia the patient was placed in low Car stirrups. This nicely exposed the perineal area for the anorectal exam and sigmoidoscopy. Following this time-out was performed and before doing any prep and in a nonsterile manner I used nonsterile gloves and carefully performed a rectal exam. I dilated the anal area and inspected it externally. There were large anal skin tags in the right anterior and posterior positions and a smaller 1 in the left lateral, slightly posterior position. Also noted was a small apparent posterior anal fissure. Following this rigid sigmoidoscopy was performed lubricating the scope and inserting it gently into the anal opening and then advancing it under direct vision with occasional suctioning of liquid stool up to the level of 18 cm. I then carefully brought the scope back looking at all carlisle and all the rectal mucosa appeared to be normal however a hypertrophic anal papilla or pedunculated mass was noted along the left rectal wall just superior to the anal opening. Following this we prepped the patient and then performed the rest of the procedure. Initially I circumferentially inspected the anal canal with 1st a small hand-held anal retractor then with the spreading type clamshell retractor. I looked circumferentially and could not see any other rectal mass other than that described above on the left side overlying a moderate to small internal hemorrhoid there was a pedunculated apparent hypertrophic anal papilla. Local anesthetic was infiltrated underneath this using 0.25% Marcaine and I allowed this to sit for about 1 minute and then Bovie cautery with needle tip was used to excise this rectal mass at its base. This was passed off the field as tge 1st specimen. I then cauterized the area of the internal hemorrhoid and did not do any suturing in the area. Following this the largest of the anal skin tags was positioned right posterior so I repositioned the clamshell retractor to expose this well and noted that as this was done there was significant swelling of the external hemorrhoid and internal hemorrhoidal complex associated with this tag. Therefore, I preformed a standard hemorrhoidectomy in this axis. This was done by carefully
[2021-09-24] MEDS: ONDANSETRON INJ 4 MG/2 ML VIAL IV PUSH (15:12)
[2021-09-24] MEDS: oxyCODONE HCL (*CRX) 5 MG TAB IR PO (15:54)
== END 2021-09-24 16:50 | disposition home or self-care (01) ==
PROVIDERS: PCP Physician Assistant; Visit Provider Surgery
PROC: (CPT 45330; principal; 2021-09-24 13:00)
DX: K64.4 Residual hemorrhoidal skin tags (principal); K64.1 Second degree hemorrhoids; K60.2 Anal fissure, unspecified; K64.8 Other hemorrhoids; F41.9 Anxiety disorder, unspecified; E11.9 Type 2 diabetes mellitus without complications; I10 Essential (primary) hypertension; Z87.891 Personal history of nicotine dependence; E66.9 Obesity, unspecified; Z68.31 Body mass index [BMI] 31.0-31.9, adult
CPT/HCPCS: 45330; 46260; 82948; 88304; A9270; J0690; J1100; J1885; J2250; J2270; J2405; J2704; J7120

== ENCOUNTER 2022-04-20 16:44 | Emergency (ER) | payer OTHER, SELFPAY ==
--- NOTE | 2022-04-20 16:45 | ED.EAR ---
HPI - Ear Problem General Stated complaint: foreign body right ear Time Seen by Provider: 04/20/22 17:19 Source: patient and RN notes reviewed Mode of arrival: ambulatory Limitations: no limitations History of Present Illness HPI Narrative: 41-year-old female presents concern for foreign body in her right ear. She reports she got an ear bud stuck in her right ear yesterday. Reports her boyfriend thought he saw something white in her ear. She denies pain, decreased hearing or drainage from your MD Complaint: foreign body Related Data Home Medications Medication Instructions Recorded Confirmed sertraline 100 mg tablet (Zoloft) 100 mg PO HS 08/14/20 11/22/21 lisinopril 20 mg tablet 20 mg PO HS 09/22/20 11/22/21 pioglitazone 30 mg tablet 30 mg PO HS 01/11/21 11/22/21 cyclobenzaprine 10 mg tablet 10 mg PO HS 09/15/21 11/22/21 ferrous sulfate 325 mg (65 mg 325 mg PO DAILY 09/22/21 11/22/21 iron) tablet Allergies Allergy/AdvReac Type Severity Reaction Status Date / Time Penicillins Allergy Intermediate Rash Verified 04/20/22 17:01 Review of Systems Review of Systems: CONSTITUTIONAL: Denies malaise, chills, sweats, or fever. EYES: Denies visual changes, redness, or discharge. ENT: Denies rhinorrhea, congestion, sinus pain, and sore throat. Reports foreign body in the right ear CARDIOVASCULAR: Denies chest pain, palpitations, or edema. RESPIRATORY: Denies cough. Denies dyspnea. GASTROINTESTINAL: Denies abdominal pain, nausea, vomiting, diarrhea SKIN: Denies rash or itching. MUSCULOSKELETAL: Denies myalgia. NEUROLOGIC: Denies headache. All systems reviewed & are unremarkable except as noted in HPI and below PMFSH Past Medical History Medical History Anxiety Bulging disc Diabetes mellitus History of blood transfusion Hypertension Surgical History Surgical History H/O laparoscopy H/O removal of cyst ovarian cyst H/O tubal ligation History of rectal surgery History of rigid sigmoidoscopy 09/24/2021 - 1)Excision of left anterior rectal mass (suspected hypertrophic anal papilla). 2. Excision of internal external hemorrhoids and large anal skin tag right posterior position 3. Excision of external hemorrhoid and anal skin tag left posterior position 4. Left lateral internal sphincterotomy 5. Excision of small external hemorrhoid and large skin tag right anterior position. 6. 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 There is no relevant family history pertinent to the presenting complaint Exam Narrative: GENERAL: Well-appearing, well-nourished, and in no acute distress. HEAD: Normocephalic EYES: PERRLA, conjunctivae clear ENT: Nares clear, turbinates edematous, clear discharge. Mucous membranes moist. TM pearly ayon with sharp light reflex bilaterally; no tragal tenderness. No foreign body visible NECK: Supple. No lymphadenopathy CHEST: Clear to auscultation, breath sounds equal. No wheezing, rhonchi, rales, or stridor. No respiratory distress, speaks in f
[2022-04-20 17:05] VITALS: BP 154/95; PULSE 79; RESP 20; TEMP 36.6; O2SAT 98
== END 2022-04-20 17:30 | disposition home or self-care (01) ==
PROVIDERS: Emergency Provider Nurse Practitioner; PCP Physician Assistant
DX: Z71.1 Person with feared health complaint in whom no diagnosis is made (principal); Z87.891 Personal history of nicotine dependence; E11.9 Type 2 diabetes mellitus without complications; I10 Essential (primary) hypertension; F41.9 Anxiety disorder, unspecified
CPT/HCPCS: 99211; G0463

== ENCOUNTER 2023-01-08 15:47 | Emergency (ER) | payer OTHER, SELFPAY ==
--- NOTE | 2023-01-08 15:56 | ED.EXTPRO ---
HPI - Extremity Problem General Chief complaint: Unspecified Stated complaint: right ring finger swollen Time Seen by Provider: 01/08/23 16:02 Source: patient and RN notes reviewed Mode of arrival: ambulatory Limitations: no limitations History of Present Illness HPI Narrative: 42-year-old female presents with concern for popping of the 4th digit of her right hand and the digit getting stuck. Reports this started 2 weeks ago without injury or trauma. Reports when she flexes the finger she feels that it gets stuck that way and then it pops when she straightens it. She denies redness, warmth, tenderness. Reports it is painful to bend MD Complaint: other (joint poppong) Related Data Home Medications Medication Instructions Recorded Confirmed sertraline 100 mg tablet (Zoloft) 100 mg PO HS 08/14/20 04/20/22 lisinopril 20 mg tablet 20 mg PO HS 09/22/20 04/20/22 Allergies Allergy/AdvReac Type Severity Reaction Status Date / Time Penicillins Allergy Intermediate Rash Verified 01/08/23 15:49 Review of Systems Review of Systems: CONSTITUTIONAL: Denies malaise, chills, sweats, or fever. SKIN: Denies rash or itching, open skin, laceration, abrasion, redness, warmth, swelling. MUSCULOSKELETAL: Reports 4th digit of her right hand gets stuck when she flexes it and popped when she extends it NEUROLOGIC: Denies numbness, weakness All systems reviewed & are unremarkable except as noted in HPI and below PMFSH Past Medical History Medical History Anxiety Bulging disc Diabetes mellitus History of blood transfusion Hypertension Surgical History Surgical History H/O laparoscopy H/O removal of cyst ovarian cyst H/O tubal ligation History of rectal surgery History of rigid sigmoidoscopy 09/24/2021 - 1)Excision of left anterior rectal mass (suspected hypertrophic anal papilla). 2. Excision of internal external hemorrhoids and large anal skin tag right posterior position 3. Excision of external hemorrhoid and anal skin tag left posterior position 4. Left lateral internal sphincterotomy 5. Excision of small external hemorrhoid and large skin tag right anterior position. 6. 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 There is no relevant family history pertinent to the presenting complaint Exam Narrative: GENERAL: Well-appearing, well-nourished, and in no acute distress. HEAD: Normocephalic EYES: PERRLA, conjunctivae clear NECK: Supple. CHEST: Speaks in full sentences. No respiratory distress. HEART: Regular rate and rhythm. Normal and equal peripheral pulses. EXTREMITIES: 4th digit of right hand has normal strength and sensation. 5/5 strength with digit flexion. Range of motion grossly normal, popping sound noted with extension. No clubbing, cyanosis, or edema noted. No tenderness. Skin intact. Normal sensation of each side of finger. No scissoring. Normal thumb opposition. Good capillary refill an
[2023-01-08 15:57] VITALS: BP 141/88; PULSE 95; RESP 16; TEMP 37.3; O2SAT 99
--- NOTE | 2023-02-13 16:35 | PC.NURSE ---
verified information, documentation shows right index but is right ring finger (right 4th digit).
== END 2023-01-08 16:13 | disposition home or self-care (01) ==
PROVIDERS: Emergency Provider Nurse Practitioner; PCP Emergency Medicine
DX: M65.341 Trigger finger, right ring finger (principal); Z87.891 Personal history of nicotine dependence; E11.9 Type 2 diabetes mellitus without complications; I10 Essential (primary) hypertension; F41.9 Anxiety disorder, unspecified
CPT/HCPCS: 29130; 99212; G0463

== ENCOUNTER 2023-01-16 11:45 | Emergency (ER) | payer OTHER, SELFPAY ==
[2023-01-16 12:30] VITALS: BP 151/98; PULSE 102; RESP 22; TEMP 36.1; O2SAT 100
[2023-01-16 15:00] VITALS: BP 147/93
[2023-01-16] MEDS: ONDANSETRON INJ 4 MG/2 ML VIAL IV PUSH (15:21)
[2023-01-16] MEDS: SODIUM CHLORIDE 0.9% IV 1,000 ML 999 ML IV CONT ×2 (15:21→17:18)
[2023-01-16] MEDS: KETOROLAC 30 MG/ML VIAL (*BKC) IV PUSH (15:21)
[2023-01-16 15:33] LABS: Basophils Percent Auto 0.2 % (0.2-1.2); Hematocrit 36.8 % (37.0-47.0); Immature Granulocyte Absolute 0.01 K/mm3 (0.00-0.031); Immature Granulocyte Percent A 0.2 % (0-0.5); Lymphocytes Absolute Auto 1.01 K/mm3 (0.9-3.2); Lymphocytes Percent Auto 17.1 % (18.3-44.2); Mean Corpuscular HGB Conc 29.9 g/dl (32-36); Mean Corpuscular Hemoglobin 23.1 pg (26-34); Mean Corpuscular Volume 77.3 fl (80-100); Mean Platelet Volume 11.5 fl (7.4-10.4); Monocytes Absolute Auto 0.5 K/mm3 (0.1-0.6); Monocytes Percent Auto 8.1 % (2.6-8.5); Neutrophils Absolute Auto 4.4 K/mm3 (1.3-6.7); Neutrophils Percent Auto 74.4 % (45.5-73.1); Platelet Count Result 306 k/mm3 (150-375); Red Blood Count 4.76 M/mm3 (4.2-5.4); Red Cell Distribution Width 16.4 % (11.5-14.5); White Blood Count 5.9 K/mm3 (4.5-10.0)
[2023-01-16 15:46] VITALS: BP 133/76
[2023-01-16 16:05] LABS: Platelet Estimate Adequate (Adequate); Schistocytes None Seen (NORMAL)
[2023-01-16 16:06] LABS: Anisocytosis 2+ (NORMAL); Hypochromasia 1+ (NORMAL)
[2023-01-16 16:31] VITALS: BP 141/82; PULSE 65
[2023-01-16 16:42] LABS: Alanine Aminotransferase 19 U/L (6-35); Albumin Level 4.7 g/dL (3.5-5.1); Alkaline Phosphatase 72 U/L (38-126); Anion Gap 10 mmol/L (8-16); Aspartate Amino Transferase 25 U/L (14-36); Bilirubin,Total 0.3 mg/dL (0.2-1.3); Blood Urea Nitrogen 15 mg/dL (7-17); Carbon Dioxide 25 mmol/L (22-30); Chloride 106 mmol/L (98-107); Estimated CRCL calculation 99 ml/min; Estimated Glomerular Filt Rate > 60; Glucose 106 mg/dL (65-110); Lipase 183 U/L (23-300); Potassium 3.2 mmol/L (3.4-5.0); Sodium 141 mmol/L (137-145)
[2023-01-16] MEDS: ACETAMINOPHEN 325 MG TABLET 650 MG PO (17:19)
[2023-01-16] MEDS: PROMETHAZINE HCL 25 MG/ML AMPUL 12.5 MG IV PUSH (17:19)
--- NOTE | 2023-01-16 18:16 | ED.GENADULT ---
HPI - General Adult General Chief complaint: Unspecified Stated complaint: withdrawing Time Seen by Provider: 01/16/23 14:50 History of Present Illness HPI narrative: Patient is a 42-year-old female who presents ER with Suboxone withdrawal. She began withdrawing on 01/12/2023. She has been having body aches as well as nausea and vomiting and abdominal cramping. No fevers but she does feel chilled. No known sick contacts. Patient has history of opiate use disorder after having surgery when she was younger and that it worsened when she had surgery couple years ago. She started Suboxone 2 get off of her opiates. She has not become dependent on this. She made a conscious decision to quit and is not out of medication. She denies any urinary frequency urgency or dysuria. She has no supportive care medications at home but she has tried [id number] NyQuil and Kaopectate. Related Data Home Medications Medication Instructions Recorded Confirmed sertraline 100 mg tablet (Zoloft) 100 mg PO HS 08/14/20 04/20/22 lisinopril 20 mg tablet 20 mg PO HS 09/22/20 04/20/22 Allergies Allergy/AdvReac Type Severity Reaction Status Date / Time Penicillins Allergy Intermediate Rash Verified 01/08/23 15:49 Review of Systems Review of Systems: All systems reviewed & are unremarkable except as noted in HPI and below Constitutional: Constitutional: Reports body ache(s), Reports chills and Denies fever(s) ENT: Denies nasal congestion and Denies sore throat Cardiovascular: Cardiovascular: Denies chest pain, Denies radiating jaw, neck or arm pain and Denies palpitations Respiratory: Respiratory: Denies cough and Denies dyspnea Gastrointestinal: Gastrointestinal: Reports abdominal pain, Reports GI cramping, Reports diarrhea, Reports nausea and Reports vomiting Musculoskeletal: Musculoskeletal: Denies arthralgias, Denies joint swelling and Reports muscle cramps Neurologic: Denies syncope, Denies focal weakness and Denies numbness PMFSH Past Medical History Medical History Anxiety Bulging disc Diabetes mellitus History of blood transfusion Hypertension Surgical History Surgical History H/O laparoscopy H/O removal of cyst ovarian cyst H/O tubal ligation History of rectal surgery History of rigid sigmoidoscopy 09/24/2021 - 1)Excision of left anterior rectal mass (suspected hypertrophic anal papilla). 2. Excision of internal external hemorrhoids and large anal skin tag right posterior position 3. Excision of external hemorrhoid and anal skin tag left posterior position 4. Left lateral internal sphincterotomy 5. Excision of small external hemorrhoid and large skin tag right anterior position. 6. 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 HEAD: Normocephalic, atraumatic. EYES: PERRL and EOMI. ENT: Mucous membranes moist. CHEST: Clear to auscultation. No respiratory distress. HEART: Tachycardic and regular. Claudette
[2023-01-16 18:48] VITALS: BP 152/89; PULSE 75; O2SAT 98
== END 2023-01-16 18:49 | disposition home or self-care (01) ==
PROVIDERS: Emergency Provider Emergency Medicine; PCP Emergency Medicine
DX: F19.239 Other psychoactive substance dependence with withdrawal, unspecified (principal); E11.9 Type 2 diabetes mellitus without complications; I10 Essential (primary) hypertension; F41.9 Anxiety disorder, unspecified; Z87.891 Personal history of nicotine dependence
CPT/HCPCS: 36415; 80053; 83690; 85025; 96361; 96374; 96375; 99284; A9270; J1885; J2405; J2550; J7030

== ENCOUNTER 2023-07-12 15:14 | Emergency (ER) | payer OTHER, SELFPAY ==
--- NOTE | ~2023-07-12 | XR_ITS ---
EXAMINATION: XR wrist RT min 3V DATE: 07/12/2023 15:46 INDICATION: Right wrist pain. Injury. TECHNIQUE: 4 views of right wrist were obtained. COMPARISON: None. FINDINGS: There is a comminuted fracture of distal radius with involvement of the distal radioulnar j oint and distal articular surface. The main distal fracture fragment demonstrates impaction, 6 mm leroy rick displacement, and dorsal angulation. There is 24 degrees dorsal tilt of the distal articular surf claudia. Joint spaces are normal. IMPRESSION: 1. Comminuted fracture of distal radius. Reviewed, dictated and finalized at location A. TER CHECKER
[2023-07-12 15:36] VITALS: BP 137/94; PULSE 83; RESP 16; TEMP 37.3; O2SAT 98
--- NOTE | 2023-07-12 15:53 | ED.UPPEXIN ---
HPI - Extremity Injury (Upper) General Chief Complaint: Extremity Injury, Upper Stated Complaint: injured right arm Time Seen by Provider: 07/12/23 15:54 Source: patient Mode of arrival: ambulatory Limitations: no limitations History of Present Illness HPI narrative: 42-year-old female presents with complaint of pain and swelling to right wrist since last night. Patient states she was up on kitchen counter trying to hang current and fell backwards on to right arm while it was extended out. Noticeable right wrist deformity. Distal neurovascularly intact. All systems reviewed and negative except as noted above. Related Data Home Medications Medication Instructions Recorded Confirmed buprenorphine 8 mg-naloxone 2 mg 1 film sublingual BID 07/12/23 07/12/23 sublingual film lamotrigine 25 mg tablet 25 mg PO DAILY 07/12/23 07/12/23 lisinopril 40 mg tablet 40 mg PO DAILY 07/12/23 07/12/23 sertraline 100 mg tablet 150 mg PO DAILY 07/12/23 07/12/23 Allergies Allergy/AdvReac Type Severity Reaction Status Date / Time Penicillins Allergy Intermediate Rash Verified 07/12/23 15:21 Review of Systems Review of Systems: CONSTITUTIONAL: Denies fever, chills, or sweats. EYES: Denies visual changes, redness, or discharge. ENT: Denies rhinorrhea, congestion, sore throat, or otalgia. CARDIOVASCULAR: Denies chest pain, palpitations, or edema. RESPIRATORY: Denies cough or dyspnea. GASTROINTESTINAL: Denies abdominal pain, nausea, vomiting, or diarrhea. GENITOURINARY: Denies dysuria or hematuria. SKIN: Denies rash or itching. MUSCULOSKELETAL: Reports pain and swelling to right wrist. NEUROLOGIC: Denies headache, numbness, or weakness. PSYCHIATRIC: Denies anxiety or depression. All other systems reviewed are negative, except as documented in HPI. [facility] Past Medical History Medical History Anxiety Bulging disc Diabetes mellitus History of blood transfusion Hypertension Surgical History Surgical History H/O laparoscopy H/O removal of cyst ovarian cyst H/O tubal ligation History of rectal surgery History of rigid sigmoidoscopy 09/24/2021 - 1)Excision of left anterior rectal mass (suspected hypertrophic anal papilla). 2. Excision of internal external hemorrhoids and large anal skin tag right posterior position 3. Excision of external hemorrhoid and anal skin tag left posterior position 4. Left lateral internal sphincterotomy 5. Excision of small external hemorrhoid and large skin tag right anterior position. 6. 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 There is no relevant family history pertinent to the presenting complaint. Exam Narrative: GENERAL: This is a well-nourished, well-developed patient, in no apparent distress. HEAD: normocephalic, atraumatic. EYES: PERRL. Sclera clear/white. Vision is grossly intact. EARS: External ears normal NOSE: External nose normal NECK: Neck s
== END 2023-07-12 16:20 | disposition short-term general hospital (02) ==
PROVIDERS: Emergency Provider Nurse Practitioner Family
DX: S52.501A Unspecified fracture of the lower end of right radius, initial encounter for closed fracture (principal); W17.89XA Other fall from one level to another, initial encounter; E11.9 Type 2 diabetes mellitus without complications; I10 Essential (primary) hypertension; F41.9 Anxiety disorder, unspecified; Z87.891 Personal history of nicotine dependence
CPT/HCPCS: 29125; 73110; 99214; G0463

== ENCOUNTER 2023-07-12 16:45 | Emergency (ER) | payer OTHER, SELFPAY ==
--- NOTE | ~2023-07-12 | XR_ITS ---
EXAMINATION: XR wrist RT 2V DATE: 07/12/2023 18:04 INDICATION: Postreduction right wrist fracture TECHNIQUE: Posteroanterior, ulnar deviation, oblique, and lateral views of the right wrist were obtai boo. COMPARISON: 07/12/2023 FINDINGS: Again seen is a comminuted intra-articular fracture of the distal right radius. No significant change in 5 mm posterior displacement and 25 degrees posterior angulation. No appreciable interval change i n the sagittal oriented intra-articular portion of the fracture plane at the ulnar side of the articu lar surface with proximal 2 mm lucent fracture gap but no incongruity. Joint spaces are normal. IMPRESSION: 1. No significant change in dorsal displacement and angulation of a comminuted intra-articular fractu re of the distal right radius. Reviewed, dictated and finalized at location A. EAR OPERATOR IMPRESSION: 1. No significant change in dorsal displacement and angulation of a comminuted intra-articular fracture of the distal right radius.
[2023-07-12 16:55] VITALS: BP 145/84; PULSE 72; RESP 18; TEMP 36.9; O2SAT 100
[2023-07-12] MEDS: SODIUM CHLORIDE 0.9% IV 1,000 ML 999 ML IV CONT (17:27)
[2023-07-12] MEDS: MORPHINE SULFATE (*CRX) 4 MG/ML INJ IV PUSH ×2 (17:27→17:59)
[2023-07-12 17:37] VITALS: BP 153/93; PULSE 80; RESP 14; O2SAT 100
[2023-07-12] MEDS: LIDO 1%/EPINEPHRINE 1:100,000 20 ML VIAL 10 ML INFILTRATE (17:45)
[2023-07-12 17:49] VITALS: BP 153/88; PULSE 75; RESP 15; O2SAT 100
--- NOTE | 2023-07-12 17:56 | ED.GENADULT ---
HPI - General Adult General Chief complaint: Extremity Injury, Upper Stated complaint: right wrist fracture Time Seen by Provider: 07/12/23 17:09 History of Present Illness HPI narrative: This is a 42 year old female referred over from urgent care for right wrist fracture with deformity today. Patient reports that the injury actually occurred last night. She was working on her kitchen and was standing in the kitchen sink. Reports that she stooped down to grab something, but subsequently lost her balance and fell down to the floor onto her outstretched right hand. Reports immediate pain and swelling in the area. Reports that she tried to go to work today and was sent home due to the injury. She went to urgent care who splinted the wrist and referred her here for reduction. Denies numbness, weakness, further sites of pain or injury. Related Data Home Medications Medication Instructions Recorded Confirmed buprenorphine 8 mg-naloxone 2 mg 1 film sublingual BID 07/12/23 07/12/23 sublingual film lamotrigine 25 mg tablet 25 mg PO DAILY 07/12/23 07/12/23 lisinopril 40 mg tablet 40 mg PO DAILY 07/12/23 07/12/23 sertraline 100 mg tablet 150 mg PO DAILY 07/12/23 07/12/23 Allergies Allergy/AdvReac Type Severity Reaction Status Date / Time Penicillins Allergy Intermediate Rash Verified 07/12/23 15:21 Review of Systems Review of Systems: All systems as dictated in [facility] Past Medical History Medical History Anxiety Bulging disc Diabetes mellitus History of blood transfusion Hypertension Surgical History Surgical History H/O laparoscopy H/O removal of cyst ovarian cyst H/O tubal ligation History of rectal surgery History of rigid sigmoidoscopy 09/24/2021 - 1)Excision of left anterior rectal mass (suspected hypertrophic anal papilla). 2. Excision of internal external hemorrhoids and large anal skin tag right posterior position 3. Excision of external hemorrhoid and anal skin tag left posterior position 4. Left lateral internal sphincterotomy 5. Excision of small external hemorrhoid and large skin tag right anterior position. 6. 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 HEAD: Normocephalic, atraumatic. EYES: PERRLA and EOMI. ENT: Nares clear, no rhinorrhea or epistaxis. Mucous membranes moist. Oropharynx without tonsillar hypertrophy exudate or other lesions. NECK: Supple. No adenopathy or masses. CHEST: No respiratory distress. Clear to auscultation. No wheezes rales or rhonchi HEART: Regular rate and rhythm. No murmur heard. Normal peripheral pulses. ABDOMEN: Soft, nontender, nondistended, normal active bowel sounds. MSK: R UE: Deformity to the right wrist. Moderate tenderness throughout the wrist. Minimal bruising. Soft compartments. Neurovascularly intact distally LUE: Benign SKIN: Warm, dry, no rash. NEURO: Alert and oriented x3. No focal deficits. PSYCH: Normal mood and affect.
[2023-07-12 18:57] VITALS: BP 154/83; PULSE 89; RESP 13; O2SAT 100
== END 2023-07-12 19:10 | disposition home or self-care (01) ==
LOC: ANHED 19:07
PROVIDERS: Emergency Provider Physician Assistant; PCP Nurse Practitioner
DX: S52.571A Other intraarticular fracture of lower end of right radius, initial encounter for closed fracture (principal); F41.9 Anxiety disorder, unspecified; E11.9 Type 2 diabetes mellitus without complications; I10 Essential (primary) hypertension; W01.0XXA Fall on same level from slipping, tripping and stumbling without subsequent striking against object, initial encounter
CPT/HCPCS: 25605; 73100; 73110; 96374; 96376; 99285; A4565; J2270; J7030

== ENCOUNTER 2023-07-19 00:29 | Day surgery (SDC) | payer OTHER, SELFPAY ==
--- NOTE | 2023-07-18 16:42 | SUR.PREOP ---
Report to the Outpatient Waiting Room, entrance under the green pavilion located off [facility], at time _1300_ on date _07/19/23_. Planned Procedure Time: _1500. Time changes happen often and if your time is changed the preop area will call you the afternoon before. - You and your visitor will be asked to self-screen and do not enter if you have any COVID symptoms. - A mask is optional within the hospital at this time. Patients may have clear liquids (water, carbonated beverages, clear teas, apple juice) until 3 hours prior to surgery with a maximum of 20 ounces. - No food from midnight until time of surgery BEFORE 12OO NOON - Infants may have breast milk until 4 hours before surgery, formula 6 hours prior to surgery. - Children will be allowed to drink immediately following surgery. If applicable, please bring a bottle or sippy cup to assist with drinking. Juice, water, soda, and popsicles are readily available. For infants on formula, please bring formula the day of surgery. Pacifiers are allowed. Take the following medications with a SIP of water the morning of surgery: ____PAIN MEDICATION IF NEEDED DO NOT STOP ANY OF YOUR OTHER PRESCRIPTION MEDICATIONS PRIOR TO SURGERY ?EXCEPT THE FOLLOWING Medications to discontinue per physician Date to take last dose Please no make-up, nail albanian, hairspray, perfume, deodorant, or body powder the day of surgery. No jewelry (including any body piercings) or valuables the day of surgery, leave them at home. Please take a shower or bath the night before, or the morning of, surgery with an antibacterial soap. Wear comfortable, loose fitting clothing. Children are encouraged to wear pajamas. - Jewelry must be removed prior to entering the operating room. Rings and piercings that are not removed may be cut off. - The hospital will not accept responsibility for valuables. - Please leave all valuables, including medications, at home the day of surgery. If you are going home after surgery, a licensed log driver must drive you home. - NO public transportation without another adult if you receive anesthesia. - We recommend that an adult stay with you for 24 hours following discharge. - We also recommend that you do not drive, make important decision, drink alcoholic beverages, or take any drugs that were not prescribed by your health care provider for at least 24 hours after your discharge time. For Pediatric surgeries, we recommend two adults accompany the child home. Follow any additional instructions given to you from your surgeon. If you or anyone in your household have experienced Covid symptoms in the past week, please notify your surgeon or the nurse liaison at the phone number below for possible testing. Telephone instructions given to __PATIENT___and asked if any additional questions and then verbalized understanding. Patient advised to call surgeon office or pre surgery nurse liaison [phone] if any additional questions.
[2023-07-19] VITALS (7 sets, daily range): BP systolic 92–144; BP diastolic 45–90; PULSE 75–90; RESP 12–19; TEMP 36.1–37.1; O2SAT 96–100; BMI 27.8
--- NOTE | ~2023-07-19 | XR_ITS ---
EXAMINATION: XR surgery orthopedic DATE: 07/19/2023 16:33 INDICATION: ORIF right wrist fracture TECHNIQUE: 5 fluoroscopic images of the right wrist were obtained during procedure performed by Dr. Shara carrasquillo. Radiologist was not present for the imaging or procedure. The amount of fluoroscopy time used during this procedure was 1.2 minutes. COMPARISON: None. FINDINGS: Images redemonstrate a mildly comminuted extra articular fracture at the distal metaphyseal region of the right radius which initially displaced. The fracture is subsequently reduced with the aid of a p ercutaneous pin which is subsequently removed. Final images demonstrate the fracture is fixed with a volar T plate and screws in near-anatomic alignment. No other fractures identified. Joint space at th e wrist and carpus appear normal. IMPRESSION: 1. Near-anatomic alignment post open reduction internal fixation of a mildly comminuted extra articul ar fracture of the distal right radius. Reviewed, dictated and finalized at location A. ET ENGINEER IMPRESSION: 1. Near-anatomic alignment post open reduction internal fixation of a mildly co mminuted extra articular fracture of the distal right radius.
--- NOTE | 2023-07-19 10:56 | WPDHPUPDATE1 ---
History and Physical Update Update Date/Time: 07/19/23 10:56 History and Physical has been reviewed, including an updated exam of the patient. There are NO changes in the patient's condition. Risks, benefits, and alternatives have been discussed and questions answered. Patient agrees to proceed with procedure.
--- NOTE | 2023-07-19 12:57 | ECG_ITS ---
Measurements Intervals [place] Rate: 81 P: 48 [place]: 157 QRS: -9 QRSD: 90 T: 15 QT: 362 QTc: 423 Interpretive Statements SINUS RHYTHM BASELINE ARTIFACT MODERATE VOLTAGE CRITERIA FOR LVH, CONSIDER NORMAL VARIANT LOW-VOLTAGE QRS IN PRECORDIAL LEADS BORDERLINE ECG COMPARED TO ECG 09/14/2021 17:00:42 NO SIGNIFICANT CHANGES Electronically Signed On 07-19-2023 16:30:36 [employer]AIL SALES ASSOCIATE SE[employer]ONAL by Fernando Garcia M.D.
[2023-07-19] MEDS: ACETAMINOPHEN 500 MG TABLET 1000 MG PO (13:21)
[2023-07-19 13:51] LABS: Hematocrit 35.2 % (37.0-47.0); Hemoglobin 10.6 g/dL (12.0-15.0)
[2023-07-19] MEDS: KETOROLAC 15 MG/ML VIAL (*BKC) IV PUSH (13:54)
[2023-07-19 14:00] LABS: Anion Gap 7 mmol/L (8-16); Blood Urea Nitrogen 12 mg/dL (7-17); Calcium 8.9 mg/dL (8.4-10.2); Carbon Dioxide 26 mmol/L (22-30); Chloride 104 mmol/L (98-107); Estimated CRCL calculation 96 ml/min; Estimated Glomerular Filt Rate > 60; Glucose 93 mg/dL (65-110); Potassium 3.3 mmol/L (3.4-5.0); Sodium 137 mmol/L (137-145)
--- NOTE | 2023-07-19 14:13 | WPDANESEPPF ---
Anes - Initial Pre Proc Eval Procedure: Operation Date: 07/19/23 15:00 Proposed Procedures p Open Reduction Internal Fixation Right Wrist Fracture - Heron Wolfe MD Date/Time: 07/19/23 14:13 Surgeon: Heron Wolfe MD Pre Op Diagnosis: Rt Distal Radius Fx Patient Data Age: 42 Gender: F Height: 1.6 m Weight: 71.4 kg Last Vital Signs Temp 37.1 C 07/19/23 13:54 Pulse 81 07/19/23 13:54 Resp 18 07/19/23 13:54 BP 128/86 07/19/23 13:54 Pulse Ox 96 07/19/23 13:54 O2 Del Method Room Air 07/19/23 13:54 Allergies Allergy/AdvReac Type Severity Reaction Status Date / Time Penicillins Allergy Intermediate Rash Verified 07/19/23 13:17 Home Medications Medication Instructions Recorded Confirmed Type acetaminophen 500 mg tablet 500 mg PO Q6H PRN pain #60 tabs 07/12/23 07/18/23 Rx buprenorphine 8 mg-naloxone 2 mg 1 film sublingual BID 07/12/23 07/18/23 History sublingual film hydrocodone 5 mg-acetaminophen 325 1 tablet PO Q8H PRN pain #14 tabs 07/12/23 07/18/23 Rx mg tablet ibuprofen 600 mg tablet 600 mg PO TID PRN pain #60 tabs 07/12/23 07/18/23 Rx lamotrigine 25 mg tablet 25 mg PO HS 07/12/23 07/18/23 History lisinopril 40 mg tablet 40 mg PO HS 07/12/23 07/18/23 History sertraline 100 mg tablet 150 mg PO HS 07/12/23 07/18/23 History Laboratory Tests 07/19/23 13:42 Hgb 10.6 L g/dL (12.0-15.0) Hct 35.2 L % (37.0-47.0) Sodium 137 mmol/L (137-145) Potassium 3.3 L mmol/L (3.4-5.0) Chloride 104 mmol/L (98-107) Carbon Dioxide 26 mmol/L (22-30) Anion Gap 7 L mmol/L (8-16) BUN 12 mg/dL (7-17) Creatinine 0.60 L mg/dL (0.7-1.0) Estim Creat Clear Calc 96 ml/min Estimated GFR > 60 (59 - ) Glucose 93 mg/dL (65-110) Calcium 8.9 mg/dL (8.4-10.2) Patient hx anesthesia problems: none Family hx anesthesia problems: none Results Review: All pre-operative results and documents have been reviewed as part of the pre-operative evaluation. [facility] Past Medical History Medical History Anxiety Bulging disc Diabetes mellitus History of blood transfusion Hypertension Surgical History Surgical History H/O laparoscopy H/O removal of cyst ovarian cyst H/O tubal ligation History of rectal surgery History of rigid sigmoidoscopy 09/24/2021 - 1)Excision of left anterior rectal mass (suspected hypertrophic anal papilla). 2. Excision of internal external hemorrhoids and large anal skin tag right posterior position 3. Excision of external hemorrhoid and anal skin tag left posterior position 4. Left lateral internal sphincterotomy 5. Excision of small external hemorrhoid and large skin tag right anterior position. 6. 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
[2023-07-19] MEDS: LACTATED RINGERS 1,000 ML 30 ML IV CONT ×2 (14:20→16:26)
[2023-07-19] MEDS: MIDAZOLAM HCL (*CRX) 2 MG/2 ML VIAL IV PUSH (14:21)
[2023-07-19] MEDS: ceFAZolin 2 GM/D5W 50 ML 2 GM/50 ML BAG IVPB (14:40)
[2023-07-19] MEDS: BUPivacaine HCL 0.5% 10 ML AMP 20 ML INFILTRATE (15:06)
--- NOTE | 2023-07-19 16:40 | W.PM.PROC2 ---
Procedure Note - Detailed Date of Procedure 07/19/23 Pre-op Diagnosis Rt Distal Radius Fx Post-op Diagnosis Same Procedure Performed Open reduction internal fixation right distal radius comminuted fracture with fixation greater than 4 fragments Surgeon Heron Wolfe MD Cylinder Die Machine Helper 1st volunteer services assistant Anesthesia General Indications 42-year-old fell and sustained a right distal radius fracture. Fracture with comminution, intra-articular extension and displacement. Patient desires operative treatment. Description of Procedure After informed consent the operative extremity was marked in the preoperative holding area. Patient received intravenous antibiotics. Patient taken to the operating room where they underwent general anesthesia. Positioned supine on operating table. Time-out performed confirming the patient, patient's site of surgery and the plan. Right upper extremity prepped and draped in the usual sterile surgical fashion using a ChloraPrep skin solution. Hand and wrist exsanguinated and arm tourniquet inflated to 250 mmHg. Standard volar flexor carpi radialis incision utilized. Fifteen blade knife used to make longitudinal incision. Flexor carpi radialis tendon identified tendon sheath incised in line with skin incision. Tendon retracted to protect the neurovascular elements. Floor of the tendon sheath incised with a 15 blade knife. Flexor pollicis retracted medial. pronator quadratus then divided off the watershed line and reflected ulnarward to expose the distal radius and the fracture. Fracture was then reduced provisionally pinned. Image intensification confirm reduction. Fixation achieved with the distal radius volar plate. This was provisionally pinned into place and confirmed with image intensification. Fixation to the proximal fragment with a 3.5 mm screw. Distal fracture fixation achieved with 2.0 mm locking pegs and 2.0 mm fully threaded locking screws for the radial styloid. Fixation was then completed proximally with the remaining 3.5 mm screws. Final reduction of the fracture, alignment of the wrist joint and placement of the hardware verified with image intensification. Wound thoroughly irrigated with antibiotic solution. Pronator repaired with 3 0 Monocryl interrupted suture. Skin closed with interrupted subcutaneous 000 Monocryl interrupted suture and running 000 Monocryl subcuticular stitch. Local anesthetic with 0.5% Marcaine. Sterile dressing applied. Padded dressing and splint then applied. Tourniquet released and good capillary refill noted in the fingers and thumb. Patient awoke from anesthesia, extubated and taken to the recovery room in stable condition. All sponge and instrument counts correct at the end of case. Implants Biomet volar distal radius locking plate Estimated Blood Loss 10 Tourniquet Time Total Tourniquet Time: 77 Drains No Packing No Pathology None sent Complications None Condition Stable Disposition PACU [facility] Billing Surgery - Charge Forward: Surgery Billing ([id number])
[2023-07-19] MEDS: fentaNYL CITRATE INJ (*CRX) 100 MCG/2 ML VIAL 25 MCG IV PUSH ×8 (16:56→17:21)
[2023-07-19] MEDS: ONDANSETRON INJ 4 MG/2 ML VIAL IV PUSH (16:56)
== END 2023-07-19 18:05 | disposition home or self-care (01) ==
PROVIDERS: Anesthesiology; PCP Nurse Practitioner; Visit Provider Orthopaedic Surgery
PROC: (CPT 25575; principal; 2023-07-19 15:00)
DX: S52.571A Other intraarticular fracture of lower end of right radius, initial encounter for closed fracture (principal); W17.89XA Other fall from one level to another, initial encounter; I10 Essential (primary) hypertension; E11.9 Type 2 diabetes mellitus without complications; F41.9 Anxiety disorder, unspecified; Z87.891 Personal history of nicotine dependence
CPT/HCPCS: 25609; 36415; 80048; 85014; 85018; 93005; 99199; A9270; C1713; J0690; J1100; J1885; J2250; J2405; J2704; J3010; J7120